=== PATIENT | female | born 1980 | race Caucasian/White ===

== ENCOUNTER 2017-04-02 14:36 | Emergency (ER) | payer SELFPAY ==
[~2017-04-02] VITALS: Ht 154.9 cm; Wt 54.4 kg
--- NOTE | 2017-04-02 16:05 | NUR ---
DR WILSON AT THE BEDSIDE FOR EVAL AND EXAM.
[2017-04-02 16:46] LABS: *URINE HCG, QUAL NEGATIVE (NEGATIVE)
--- NOTE | 2017-04-02 16:56 | NUR ---
PT OUT OF ER FOR CT.
[2017-04-02 18:19] VITALS: BP 112/67
--- NOTE | 2017-04-02 18:19 | NUR ---
Patient discharged to home in stable conditon. Written and verbal after care instructions given. Patient verbalizes understanding of instructions. PT WALKED OUT OF ER W/ STEADY GAIT.
== END 2017-04-02 18:20 | disposition home or self-care (01) ==
LOC: ER 14:37
DX: S16.1XXA Strain of muscle, fascia and tendon at neck level, initial encounter (principal); S00.83XA Contusion of other part of head, initial encounter; S80.211A Abrasion, right knee, initial encounter; V03.10XA Pedestrian on foot injured in collision with car, pick-up truck or van in traffic accident, initial encounter; Y93.89 Activity, other specified; Y92.413 State road as the place of occurrence of the external cause; Y99.8 Other external cause status
CPT/HCPCS: 70450; 72125; 84703; 99285; A4663